=== PATIENT | male | born 1985 | race Caucasian/White ===

== ENCOUNTER 2016-11-06 19:51 | Emergency (ER) | payer OTHER ==
--- NOTE | 2016-11-06 20:10 | ED Physician Documentation ---
PD HPI CHEST PAIN - Stated complaint Stated Complaint: CHEST/NECK PAIN - Chief complaint Chief Complaint: Cardiac - History obtained from History obtained from: Patient - History of Present Illness Timing - onset: Enter time ( 15:00), Yesterday Timing - details: Gradual onset Pain level now: 3 Quality: Pain Location: Substernal Radiation: Neck Improved by: Nothing Worsened by: Inspiration, Eating Associated symptoms: No: Shortness of air, Diaphoresis, Nausea, Vomiting, Feeling faint / dizzy, General Weakness, Palpitations, Cough Similar symptoms before: Has not had sx before Recently seen: Not recently seen - Additional information Additional information: midline chest pain radiating to anterior neck since 3 PM yesterday immediately after a long bicycle ride. Review of Systems Constitutional: reports: Reviewed and negative Cardiac: reports: Chest pain / pressure. denies: Palpitations, Pedal edema, Calf pain Respiratory: reports: Reviewed and negative GI: reports: Reviewed and negative Musculoskeletal: denies: Extremity swelling PD PAST MEDICAL HISTORY - Past Medical History Past Medical History: No - Past Surgical History Past Surgical History: No - Present Medications Home Medications: Ambulatory Orders Medication Instructions Recorded Confirmed No Known Home Medications [No 11/06/16 11/06/16 Known Home Medications] - Allergies Allergies/Adverse Reactions: Allergies Allergy/AdvReac Type Severity Reaction Status Date / Time No Known Drug Allergies Allergy Verified 11/06/16 19:54 - Living Situation Living Arrangement: reports: At home - Social History Does the pt smoke?: No PD ED PE NORMAL - Vitals Vital signs reviewed: Yes - General General: Alert and oriented X 3, No acute distress, Well developed/nourished - Neck Neck: Supple, no meningeal sign - Cardiac Cardiac: RRR, No murmur, No gallop, No rub - Respiratory Respiratory: No respiratory distress, Clear bilaterally - Abdomen Abdomen: Soft, Non tender - Extremities Extremities: No edema Results - Vitals Vitals: Vital Signs - 24 hr 11/06/16 11/06/16 19:54 21:46 Temperature 36.1 C L Heart Rate 60 54 L Respiratory 14 20 Rate Blood Pressure 122/75 113/65 O2 Saturation 100 100 Oxygen O2 Source Room air - EKG (time done) No standard instances Rate: Rate (enter#) (60) Rhythm: NSR [place]: Normal Intervals: Normal ID QRS: Normal Ischemia: ST elevation c/w repol (V2-V5) - Labs Labs: Laboratory Tests 11/06/16 11/06/16 11/06/16 20:29 20:29 20:29 WBC 9.7 RBC 4.89 Hgb 14.3 Hct 42.0 MCV 85.8 MCH 29.2 MCHC 34.0 RDW 12.8 Plt Count 223 MPV 8.5 Neut # 6.0 Lymph # 2.6 [place] # 0.8 Eos # 0.2 Baso # 0.0 Absolute Nucleated RBC 0.01 Nucleated RBCs 0.1 D-Dimer 171.1 L Sodium 140 Potassium 4.2 Chloride 104 Carbon Dioxide 31 Anion Gap 5.0 L BUN 22 H Creatinine 1.1 Estimated GFR (MDRD) 79 L Glucose 110 H Calcium 9.4 Troponin I 11/06/16 20:29 WBC RBC Hgb Hct MCV MCH MCHC RDW Plt Count MPV Neut # Lymph # [place] # Eos # Baso # Absolute Nucleated RBC Nucleated RBCs D-Dimer Sodium Potassium Chloride Carbon Dioxide Anion Gap BUN Creatinine Estimated GFR (MDRD) Glucose Calcium Troponin I < 0.04 - Rads (name of study) chest xray Radiology: Prelim report reviewed, See rad report PD MEDICAL DECISION MAKING - ED course Complexity details: reviewed results, re-evaluated patient, considered differential, d/w patient Departure - Departure Disposition: 01 Home, Self Care Clinical Impression: Chest pain Qualifiers: Chest pain type: unspecified Qualified Code(s): R07.9 - Chest pain, unspecified Condition: Good Instructions: ED Chest Pain Atypical Unkn Cause, ED Chest Pain Pleurisy Follow-Up: Kelsey Naidu MD [Primary Care Provider] - Discharge Date/Time: 11/06/16 21:47
[2016-11-06 20:37] LABS: BASOPHILS % (AUTO) 0.4 %; EOSINOPHILS # (AUTO) 0.2 10^3/uL (0.0-0.7); EOSINOPHILS % (AUTO) 1.9 %; HGB - HEMOGLOBIN 14.3 g/dL (14.0-18.0); LYMPHOCYTES # (AUTO) 2.6 10^3/uL (1.5-3.5); LYMPHOCYTES % (AUTO) 26.9 %; MEAN CORPUSCULAR HEMOGLOBIN 29.2 pg (27.0-31.0); MEAN CORPUSCULAR VOLUME 85.8 fL (80.0-94.0); MEAN PLATELET VOLUME 8.5 fL (7.4-11.4); MONOCYTES # (AUTO) 0.8 10^3/uL (0.0-1.0); MONOCYTES % (AUTO) 8.6 %; NEUTROPHILS % (AUTO) 62.2 %; NUCLEATED RED BLOOD CELLS AUTO 0.1 /100WBC; RED BLOOD COUNT 4.89 10^6/uL (4.70-6.10); RED CELL DISTRIBUTION WIDTH 12.8 % (12.0-15.0); UNCORRECTED WHITE BLOOD COUNT 9.7 x10^3/uL; WHITE BLOOD COUNT 9.7 x10^3/uL (4.8-10.8)
[2016-11-06 20:44] LABS: CALCIUM 9.4 mg/dL (8.5-10.3); CREATININE 1.1 mg/dL (0.6-1.2); POTASSIUM 4.2 mmol/L (3.5-5.0)
--- NOTE | 2016-11-06 21:11 | XRAY Preliminary Report ---
Exam: XR Chest 2 View PA/LAT IMPRESSION: Normal 2-view chest radiography. [facility] SITE ID: [id number]
--- NOTE | 2016-11-06 21:13 | XRAY Report ---
EXAM: CHEST RADIOGRAPHY EXAM DATE: 11/06/2016 08:54 PM. CLINICAL HISTORY: Chest pain. COMPARISON: None. TECHNIQUE: 2 views. FINDINGS: Lungs/Pleura: No focal opacities evident. No pleural effusion. No pneumothorax. Normal volumes. Mediastinum: Heart and mediastinal contours are unremarkable. Other: None. IMPRESSION: Normal 2-view chest radiography. [facility] Referring Provider Line: [phone] SITE ID: [id number]
[2016-11-06 21:47] VITALS: BP 113/65
== END 2016-11-06 21:47 | disposition home or self-care (01) ==
LOC: ED 19:51
DX: R07.9 Chest pain, unspecified (principal); M54.2 Cervicalgia
CPT/HCPCS: 36415; 71020; 80048; 84484; 85025; 85379; 93005; 99283